=== PATIENT | female | born 1995 | race Two or more races ===

== ENCOUNTER 2016-12-29 23:49 | Emergency (ER) | payer SELFPAY ==
[2016-12-30] MEDS ORDERED: TRAMADOL HCL 50 MG TABLET PO ONE (04:01)
--- NOTE | 2016-12-30 04:01 | ER Document Report ---
HPI - HPI Patient complains to provider of: ankle pain Onset: Other Onset/Duration: Persistent - 3 weeks Quality of pain: Achy Pain Level: 4 Context: Patient complains of left ankle pain for the past 3 weeks. Patient states she was walking and felt a pop in her ankle. Patient denies any known injury. Associated Symptoms: Other - Left ankle pain Exacerbated by: Standing, Movement, Walking Relieved by: Denies Similar symptoms previously: No Recently seen / treated by doctor: No - ROS ROS below otherwise negative: Yes Systems Reviewed and Negative: Yes All other systems reviewed and negative - NEURO Neurology: DENIES: Weakness - REPRODUCTIVE LMP: 12-24-16 - MUSCULOSKELETAL Musculoskeletal: REPORTS: Extremity pain - Left ankle - DERM Skin Color: Normal Skin Problems: None Past Medical History - General Information source: Patient - Social History Smoking Status: Never Smoker Frequency of alcohol use: Occasional Drug Abuse: None Occupation: food science technician Family History: None, Reviewed & Not Pertinent Patient has suicidal ideation: No Patient has homicidal ideation: No Neurological Medical History: Reports: Hx Migraine Renal/ Medical History: Denies: Hx Peritoneal Dialysis Past Surgical History: Reports: Hx Appendectomy, Hx Oral Surgery Vertical Provider Document - CONSTITUTIONAL Agree With Documented VS: Yes Exam Limitations: No Limitations General Appearance: WD/WN, No Apparent Distress - INFECTION CONTROL TRAVEL OUTSIDE OF THE [place] IN LAST 30 DAYS: No - HEENT HEENT: Atraumatic, Normocephalic - NECK Neck: Normal Inspection - RESPIRATORY Respiratory: No Respiratory Distress O2 Sat by Pulse Oximetry: 99 - CARDIOVASCULAR Pulses: Normal: Dorsalis pedis - MUSCULOSKELETAL/EXTREMETIES Musculoskeletal/Extremeties: MAEW, Tender - Left ankle tenderness to bilateral malleolar area, no deformity, no edema, No Edema. negative: Eccymosis - NEURO Level of Consciousness: Awake, Alert, Appropriate Motor/Sensory: No Motor Deficit, No Sensory Deficit - DERM Integumentary: Warm, Dry, No Rash Course - Vital Signs Vital signs: Temp Pulse Resp BP Pulse Ox 97.8 F 80 18 140/72 H 99 12/30/16 02:09 12/30/16 02:09 12/30/16 02:09 12/30/16 02:09 12/30/16 02:09 - Diagnostic Test Radiology reviewed: Image reviewed, Reports reviewed Procedures - Immobilization Left Ankle Pre-Proc Neuro Vasc Exam: Normal Immobilizer type: Ankle stirrup Performed by: PCT Post-Proc Neuro Vasc Exam: Normal Alignment checked and good: Yes Discharge - Discharge Clinical Impression: Tendonitis, Elevated blood pressure reading Ankle pain, left Qualifiers: Chronicity: acute Qualified Code(s): M25.572 - Pain in left ankle and joints of left foot Condition: Stable Disposition: HOME, SELF-CARE Instructions: Use of Crutches ([facility]), Ankle Stirrup Splint ([facility]), Ice & Elevation ([facility]), Tendonitis ([facility]), Ultram ([facility]), Anti-Inflammatory Medication ( [facility]) Additional Instructions: Return immediately for any new or worsening symptoms Followup with your primary care provider, call tomorrow to make a followup appointment Follow up with orthopedic DrAmilcar for further evaluation, call Sunday for an appointment Your blood pressure was elevated today, recheck in 1-2 days with a primary doctor. Weightbearing as tolerated Wear stirrup splint for the next 4 days and then remove. If still having pain, follow-up with orthopedic DrAmilcar for further evaluation Prescriptions: Naproxen [Naprosyn 250 Nmg Tablet] 1 tab PO BID #14 tablet Tramadol HCl [Ultram 50 mg Tablet] 50 mg PO ASDIR PRN #12 tablet PRN Reason: Forms: Elevated Blood Pressure, Return to Work Referrals: [facility] [Provider Group] - Follow up as needed [facility] [Provider Group] - 01/01/17
[2016-12-30 06:27] VITALS: BP 132/83
== END 2016-12-30 06:38 | disposition home or self-care (01) ==
LOC: ER 23:49
DX: M77.9 Enthesopathy, unspecified (principal); R03.0 Elevated blood-pressure reading, without diagnosis of hypertension; M25.572 Pain in left ankle and joints of left foot
CPT/HCPCS: 99283; 73610; L4350

== ENCOUNTER 2018-10-11 03:22 | Emergency (ER) | payer SELFPAY ==
[2018-10-11] MEDS ORDERED: LIDOCAINE 2% VISCOUS SOLN 20 ML UDCUP PO ONE (04:05)
[2018-10-11] MEDS ORDERED: MAG HYDROX/AL HYDROX/SIMETH SUSP 30 ML UDCUP PO ONE (04:05)
[2018-10-11] MEDS ORDERED: METOCLOPRAMIDE HCL ORAL SOLN 10 MG/10 ML UDCUP PO ONE (04:05)
--- NOTE | 2018-10-11 04:11 | ER Document Report ---
ED General - General Chief Complaint: Abdominal Pain Stated Complaint: HEADACHE Time Seen by Provider: 10/11/18 03:54 Primary Care Provider: TRINA VICENTE MD [ACTIVE STAFF] - Follow up as needed JELANI HIDALGO MD [ACTIVE STAFF] - Follow up as needed DERRICK ESPARZA MD [ACTIVE STAFF] - Follow up as needed Mode of Arrival: Ambulatory Information source: Patient Notes: 22-year-old female presents emergency department multiple complaints. Patient states that for the last 5 months she has been having left breast pain. She denies any trauma or injury. She denies feeling any lumps. Patient states that the entire left breast just aches. She denies any nipple discharge. No rashes. Patient denies any alleviating or exacerbating factors. Patient states that s he is also having a headache located at her temples for the last 4 months. Patient states that it is constantly there. She states that occasionally it will dull down. She states that she is tried [id number] Tylenol and Motrin with minimal relief of symptoms. Patient denies any vision changes, speech changes, numbness, tingling, weakness, fever, chills. Patient denies any head injury. Patient states that she is also had a lump in the epigastric abdominal region that she noticed a month ago. She states that she is having some associated epigastric abdominal pain. It is intermittent in nature. She denies any nausea, vomiting, diarrhea, constipation, dysuria, hematuria, vaginal discharge. Patient states that she is currently on her menstrual cycle. Patient denies any medical problems. TRAVEL OUTSIDE OF THE [place] IN LAST 30 DAYS: No - HPI Onset/Duration: Persistent Associated symptoms: Headache Exacerbated by: Denies Relieved by: Denies Similar symptoms previously: Yes Recently seen / treated by doctor: No - Related Data Allergies/Adverse Reactions: No Known Allergies Allergy (Verified 05/02/16 17:09) Past Medical History - General Information source: Patient - Social History Smoking Status: Never Smoker Chew tobacco use (# tins/day): No Frequency of alcohol use: None Drug Abuse: None Family History: None, Reviewed & Not Pertinent Patient has suicidal ideation: No Patient has homicidal ideation: No Pulmonary Medical History: Reports: Hx Asthma Neurological Medical History: Reports: Hx Migraine Renal/ Medical History: Denies: Hx Peritoneal Dialysis Past Surgical History: Reports: Hx Appendectomy, Hx Oral Surgery Review of Systems - Review of Systems Constitutional: No symptoms reported EENT: Nose discharge Cardiovascular: No symptoms reported Respiratory: No symptoms reported Gastrointestinal: Abdominal pain Genitourinary: No symptoms reported Female Genitourinary: No symptoms reported Musculoskeletal: No symptoms reported Skin: No symptoms reported Hematologic/Lymphatic: No symptoms reported Neurological/Psychological: No symptoms reported -: Yes All other systems reviewed and negative Physical Exam - Vital signs Vitals: Temp Pulse Resp BP Pulse Ox 98.1 F 88 17 126/72 H 99 10/11/18 03:33 10/11/18 03:33 10/11/18 03:33 10/11/18 03:33 10/11/18 03:33 - Notes Notes: PHYSICAL EXAMINATION: GENERAL: Well-appearing, well-nourished and in no acute distress. HEAD: Atraumatic, normocephalic. EYES: Pupils equal round and reactive to light, extraocular movements intact, conjunctiva are normal. ENT: Nares patent, oropharynx clear without exudates. Moist mucous membranes. NECK: Normal range of motion, supple without lymphadenopathy LUNGS: Breath sounds clear to auscultation bilaterally and equal. No wheezes rales or rhonchi. HEART: Regular rate and rhythm without murmurs. L breast diffuse tenderness to palpation. No nipple discharge. No rash. No lumps appreciated. ABDOMEN: Soft, tenderness to palpation in the epigastric area. Nondistended. No guarding, no rebound. No masses appreciated. Female : deferred Musculoskeletal: Normal range of motion, no pitting or edema. No cyanosis. NEUROLOGICAL: Cranial nerves grossly intact. Normal speech, normal gait. Normal sensory, motor exams PSYCH: Normal mood, normal affect. SKIN: Warm, Dry, normal turgor, no rashes or lesions noted. Course - Re-evaluation Re-evalutation: 10/11/18 05:44 Labs and imaging obtained. No acute process was identified. I will refer the patient to her primary care physician, GI, as well as an CRM TECHNICAL LEAD. I instructed the patient to take [id number] medication as necessary for discomfort, to follow-up with the physicians outpatient for further evaluation and testing, and to return to the emergency department for any worsening symptoms. - Vital Signs Vital signs: Temp Pulse Resp BP Pulse Ox 98.0 F 80 17 108/66 98 10/11/18 05:59 10/11/18 05:59 10/11/18 05:59 10/11/18 05:59 10/11/18 05:59 - Laboratory Result Diagrams: 10/11/18 04:28 10/11/18 04:28 Laboratory results interpreted by me: 10/11/18 10/11/18 04:28 04:28 Lymphocytes % 12.6 L Monocytes % 14.2 H Urine Urobilinogen 4.0 H Urine Ascorbic Acid 40 H Discharge - Discharge Clinical Impression: Breast pain, left, Epigastric abdominal pain Headache Qualifiers: Headache type: unspecified Headache chronicity pattern: chronic headache Intractability: intractable Qualified Code(s): R51 - Headache Condition: Good Disposition: HOME, SELF-CARE Instructions: Breast Discharge ([facility]), Breast Lumps ([facility]), Evaluation of Upper A bdominal Pain ([facility]) Forms: Return to Work Referrals: JELANI HIDALGO MD [ACTIVE STAFF] - Follow up as needed DERRICK ESPARZA MD [ACTIVE STAFF] - Follow up as needed TRINA VICENTE MD [ACTIVE STAFF] - Follow up as needed
[2018-10-11 04:47] LABS: ABSOLUTE EOSINOPHILS # (AUTO) 0.1 10^3/uL (0.0-0.6); ABSOLUTE LYMPHOCYTES (AUTO) 1.1 10^3/uL (0.5-4.7); ABSOLUTE MONOCYTES (AUTO) 1.3 10^3/uL (0.1-1.4); ABSOLUTE NEUT (AUTO) 6.3 10^3/uL (1.7-8.2); BASOPHILS % (AUTO) 0.4 % (0-2); EOSINOPHILS % (AUTO) 1.6 % (0-6); HEMATOCRIT 39.3 % (36.0-47.0); HEMOGLOBIN 13.1 g/dL (12.0-15.5); LYMPHOCYTES % (AUTO) 12.6 % (13-45); MEAN CORPUSCULAR HEMOGLOBIN 30.5 pg (27.0-33.4); MEAN CORPUSCULAR HGB CONC 33.4 g/dL (32.0-36.0); MEAN CORPUSCULAR VOLUME 92 fl (80-97); MONOCYTES % (AUTO) 14.2 % (3-13); PLATELET COUNT 229 10^3/uL (150-450); RED CELL DISTRIBUTION WIDTH 13.5 % (11.5-14.0); SEGMENTED NEUTROPHILS % (AUTO) 71.2 % (42-78); TOTAL CELLS COUNTED % (AUTO) 100 %; WHITE BLOOD COUNT 8.9 10^3/uL (4.0-10.5)
[2018-10-11 05:07] LABS: APPEARANCE,URINE SLIGHTLY-CLOUDY; BILIRUBIN,URINE NEGATIVE (NEGATIVE); COLOR,URINE YELLOW; GLUCOSE, URINE NEGATIVE (NEGATIVE); KETONES,URINE NEGATIVE (NEGATIVE); LEUKOCYTE ESTERASE,URINE NEGATIVE (NEGATIVE); NITRITE,URINE NEGATIVE (NEGATIVE); PROTEIN,URINE NEGATIVE (NEGATIVE); URINE SPECIFIC GRAVITY 1.025
[2018-10-11 05:11] LABS: ALANINE AMINOTRANSFERASE 13 U/L (9-52); ALBUMIN 4.5 g/dL (3.5-5.0); ALKALINE PHOSPHATASE 70 U/L (38-126); ANION GAP 10 (5-19); ASPARTATE AMINO TRANSFERASE 22 U/L (14-36); BILIRUBIN,DIRECT 0.2 mg/dL (0.0-0.4); BILIRUBIN,TOTAL 0.3 mg/dL (0.2-1.3); BLOOD UREA NITROGEN 10 mg/dL (7-20); CALCIUM 9.5 mg/dL (8.4-10.2); CARBON DIOXIDE 26 mmol/L (22-30); CHLORIDE 107 mmol/L (98-107); GLUCOSE 96 mg/dL (75-110); LIPASE 48.1 U/L (23-300); POTASSIUM 4.6 mmol/L (3.6-5.0); TOTAL PROTEIN 6.8 g/dL (6.3-8.2)
[2018-10-11] MEDS ORDERED: KETOROLAC TROMETHAMINE 60 MG/2 ML SDV IM ONE (05:42)
[2018-10-11] MEDS ORDERED: IBUPROFEN 600 MG TABLET PO ONE (05:50)
--- NOTE | 2018-10-11 05:58 | RADIOLOGY REPORT (SQ) ---
EXAM DESCRIPTION: XR ABDOMEN SUPINE AND ERECT WITH CHEST (ABD ACUTE SERIES) COMPLETED DATE/TME: 10/11/2018 04:12 CLINICAL HISTORY: 22 years Female, epigastric abdominal pain Comparison: None. NUMBER OF VIEWS/TECHNIQUE: 3 LIMITATIONS: None. FINDINGS: Intestinal gas pattern is within normal limits. Increased lung volume. No suspicious calcification. Grossly intact skeletal structures. No acute cardiopulmonary findings. IMPRESSION: No acute findings.
[2018-10-11 06:01] VITALS: BP 108/66
== END 2018-10-11 06:01 | disposition home or self-care (01) ==
LOC: ER 03:22
DX: N64.4 Mastodynia (principal); R10.13 Epigastric pain; R10.9 Unspecified abdominal pain; R51 Headache; J45.909 Unspecified asthma, uncomplicated
CPT/HCPCS: 99284; 36415; 83690; 85025; 81025; 80053; 81001; 74022; J3490

== ENCOUNTER 2019-01-24 20:32 | Emergency (ER) | payer SELFPAY ==
[2019-01-24 20:40] VITALS: BP 133/80
--- NOTE | 2019-01-24 21:14 | ER Document Report ---
ED General - General Chief Complaint: Wrist Pain Stated Complaint: WRIST INJURY/BLOOD SUGAR CHECK Time Seen by Provider: 01/24/19 20:59 Mode of Arrival: Ambulatory Information source: Patient TRAVEL OUTSIDE OF THE [place] IN LAST 30 DAYS: No - HPI Patient complains to provider of: Left wrist pain, polydipsia Onset: Other - Chronic Onset/Duration: Constant Quality of pain: Sharp Severity: Severe Pain Level: 4 Associated symptoms: None Exacerbated by: Movement Relieved by: Denies Similar symptoms previously: No Recently seen / treated by doctor: No Notes: 23-year-old female coming in today for left wrist pain. Has some tingling in her fingers and pain in her left wrist. Today at work she felt a popping sensation. Also drinks a lot of water. Has a lot of thirst. Concerned about developing diabetes. - Related Data Allergies/Adverse Reactions: No Known Allergies Allergy (Verified 05/02/16 17:09) Past Medical History - General Information source: Patient - Social History Smoking Status: Smoker,Current Status Unk Family History: None, Reviewed & Not Pertinent Pulmonary Medical History: Reports: Hx Asthma Neurological Medical History: Reports: Hx Migraine Renal/ Medical History: Denies: Hx Peritoneal Dialysis Past Surgical History: Reports: Hx Appendectomy, Hx Oral Surgery Review of Systems - Review of Systems Notes: Constitutional: No fevers. No chills. Positive for polydipsia EENT: No eye redness. No eye pain. No ear pain. No sore throat. Cardiovascular: No chest pain. No palpitations. Respiratory: No cough. No shortness of breath. No respiratory distress. Gastrointestinal: No abdominal pain. No nausea, vomiting, or diarrhea. Genitourinary: Atraumatic. No lesions. No pain. No discharge. Musculoskeletal: Positive for left wrist pain, left wrist popping Skin: No rash or lesions. Lymphatic: No swollen lymph nodes. Neurologic: No headache. No syncope. Psychiatric: No suicidal or homicidal ideation. Physical Exam - Vital signs Vitals: Temp Pulse Resp BP Pulse Ox 98.4 F 73 15 133/80 H 98 01/24/19 20:38 01/24/19 20:38 01/24/19 20:38 01/24/19 20:38 01/24/19 20:38 - Notes Notes: General: Well-developed, well-nourished. In no acute distress. Non-toxic appearing. Cardiac: Well-perfused. Regular rate and rhythm. No murmurs, rubs, or gallops. Pulmonary: No respiratory distress. No cyanosis. Bilateral lung fiels are clear to auscultation. Abdominal: Non-distended. Non-rigid. Bowels sounds are present in all four quadrants. No guarding or rebound. HEENT: Head is atraumatic. Conjunctivae not reddened. No tearing. PERRL. EOMI. Orbits atraumatic. No periorbital swelling or erythema. Oropharynx is without erythema, swelling, or exudates. Neck: Supple. No adenopathy. No meningismus. Dermatologic: Warm with good turgor. No rash. Atraumatic. Chest: Atraumatic. No chest wall tenderness to palpation. Musculoskeletal: Moves all extremities well. No range of motion deficits. no muscular or joint tenderness. No paraspinal muscle tenderness. no midline spinal tenderness or step-off. Genitourinary: Examination deferred Neurologic: No gross neurologic deficits. Psychiatric: Normal mood. Course - Re-evaluation Re-evalutation: 01/24/19 21:13 We will get a wrist film. Likely it will be normal. Will probably end up splinting the left wrist. Accu-Chek will be ordered to see if there is any concern about the patient's blood sugar. - Vital Signs Vital signs: Temp Pulse Resp BP Pulse Ox 98.4 F 73 15 133/80 H 98 01/24/19 20:38 01/24/19 20:38 01/24/19 20:38 01/24/19 20:38 01/24/19 20:38 - Laboratory Laboratory results interpreted by me: 01/24/19 21:16 POC Glucose 137 H Discharge - Discharge Clinical Impression: Tendinitis, Hyperglycemia Condition: Good Disposition: HOME, SELF-CARE Instructions: Tendonitis ([facility]), Hyperglycemia ([facility]) Additional Instructions: Wear the wrist splint as needed for comfort of the left wrist until its better. Blood sugar was a little elevated here. Suggest that she follow back up with the clinic to have further testing done. Elevated blood sugar here could very well be secondary to drinking a sugary beverage before you came in. Prescriptions: Naproxen 500 mg PO BID 7 Days #14 tablet Referrals: [facility] [Provider Group] - Follow up as needed
--- NOTE | 2019-01-24 22:03 | RADIOLOGY REPORT (SQ) ---
EXAM DESCRIPTION: XR WRIST 3 OR MORE VIEWS COMPLETED DATE/TME: 01/24/2019 21:10 CLINICAL HISTORY: 23 years, Female, Pain and popping in left wrist COMPARISON: None. NUMBER OF VIEWS: 3 TECHNIQUE: 3 view left wrist LIMITATIONS: None. FINDINGS: Negative for acute fracture or dislocation. Soft tissues are unremarkable. Joint spaces are preserved IMPRESSION: Negative exam copyright 2010 [employer]- All Rights Reserved
== END 2019-01-24 22:25 | disposition home or self-care (01) ==
LOC: ER 20:32
DX: M77.9 Enthesopathy, unspecified (principal); R73.9 Hyperglycemia, unspecified; M25.532 Pain in left wrist; R63.1 Polydipsia; F17.200 Nicotine dependence, unspecified, uncomplicated
CPT/HCPCS: 99283; 82962; 73110; L3908

== ENCOUNTER 2019-05-05 16:29 | Emergency (ER) | payer SELFPAY ==
--- NOTE | 2019-05-05 17:02 | ER Document Report ---
HPI - HPI Patient complains to provider of: nausea, fever Time Seen by Provider: 05/05/19 16:50 Onset: Last week Onset/Duration: Persistent Quality of pain: No pain Pain Level: Denies Context: This 23-year-old female presents to the emergency department with complaints of nausea and fever on and off for the past week. She reports she is feeling the same way she felt when she was with her daughter. She has taken multiple home test and they have all been negative. She reports the only way they discovered she was before was with a blood test. Patient denies vomiting diarrhea. Reports she is eating and drinking okay she just is nauseated all day long. Patient denies pain with void denies urinary symptoms. Denies vaginal discharge. Patient is sexually active no control. Patient reports some lower abdominal pain that comes and goes with no pain at this time. Associated Symptoms: None Exacerbated by: Denies Relieved by: Denies Similar symptoms previously: Yes Recently seen / treated by doctor: No - REPRODUCTIVE LMP: 04/15/2019 Reproductive: DENIES: : Past Medical History - General Information source: Patient Last Menstrual Period: 04/15/19 - Social History Smoking Status: Current Some Day Smoker Cigarette use (# per day): Yes Frequency of alcohol use: None Drug Abuse: None Lives with: Family Family History: None, Reviewed & Not Pertinent Patient has suicidal ideation: No Patient has homicidal ideation: No Pulmonary Medical History: Reports: Hx Asthma Neurological Medical History: Reports: Hx Migraine Renal/ Medical History: Denies: Hx Peritoneal Dialysis Past Surgical History: Reports: Hx Appendectomy, Hx Oral Surgery Vertical Provider Document - CONSTITUTIONAL Agree With Documented VS: Yes Exam Limitations: No Limitations General Appearance: WD/WN, No Apparent Distress - INFECTION CONTROL TRAVEL OUTSIDE OF THE [place] IN LAST 30 DAYS: No - HEENT HEENT: Atraumatic, Normocephalic - NECK Neck: Normal Inspection, Supple. negative: Lymphadenopathy-Left, Lymphadenopathy-Right - RESPIRATORY Respiratory: Breath Sounds Normal, No Respiratory Distress - CARDIOVASCULAR Cardiovascular: Regular Rate - GI/ABDOMEN Gastrointestinal: Abdomen Soft, Abdomen Non-Tender - BACK Back: Normal Inspection. negative: CVA Tenderness-Right, CVA Tenderness-Left - MUSCULOSKELETAL/EXTREMETIES Musculoskeletal/Extremeties: DIMPLE NUÑEZ - NEURO Level of Consciousness: Awake, Alert, Appropriate Motor/Sensory: No Motor Deficit - DERM Integumentary: Warm, Dry Course - Re-evaluation Re-evalutation: 05/05/19 18:40 23-year-old female presents emergency department with reports she is had fever and felt nauseated for the past week. She reports this is the same symptoms she had when she was with her daughter. She is worried she is . Reports she is taking negative multiple home test and they have all been negative. She would like a blood test. UA negative serum test negative. Patient denies any other symptoms such as fever vomiting diarrhea reports abdominal pain that comes and goes every now and then but no abdominal pain at this time. Denies all urinary symptoms. Denies vaginal discharge. Patient was instructed on results instructed to follow-up with her primary care provider continued symptoms. Dictation of this chart was performed using voice recognition software; therefore, there may be some unintended grammatical errors. 05/05/19 18:42 Serum HCG, Qual NEGATIVE (NEGATIVE) 05/05/19 17:07 Urine Color YELLOW 05/05/19 17:07 Urine Appearance CLEAR 05/05/19 17:07 Urine pH 6.0 (5.0-9.0) 05/05/19 17:07 Ur Specific Villalba 1.012 05/05/19 17:07 Urine Protein NEGATIVE mg/dL (NEGATIVE) 05/05/19 17:07 Urine Glucose (UA) NEGATIVE mg/dL (NEGATIVE) 05/05/19 17:07 Urine Ketones NEGATIVE mg/dL (NEGATIVE) 05/05/19 17:07 Urine Blood NEGATIVE (NEGATIVE) 05/05/19 17:07 Urine Nitrite NEGATIVE (NEGATIVE) 05/05/19 17:07 Ur Leukocyte Esterase NEGATIVE (NEGATIVE) 05/05/19 17:07 Urine WBC (Auto) 0 /HPF 05/05/19 17:07 Urine RBC (Auto) 1 /HPF 05/05/19 17:07 - Vital Signs Vital signs: Temp Pulse Resp BP Pulse Ox 98.7 F 90 16 128/66 H 96 05/05/19 16:33 05/05/19 16:33 05/05/19 16:33 05/05/19 16:33 05/05/19 16:33 Discharge - Discharge Clinical Impression: Nausea Fever Qualifiers: Fever type: unspecified Qualified Code(s): R50.9 - Fever, unspecified Condition: Stable Disposition: HOME, SELF-CARE Instructions: Fever ([facility]), Nausea or Vomiting, Nonspecific ([facility]) Additional Instructions: *You have been evaluated for nausea and fever *The serum test was negative *Follow-up with your primary care provider within 1 week for recheck *Return to ED for worsening condition, changes, needs Monitor your blood pressure. Your blood pressure was elevated today. This may be because you were anxious, in pain or because you need medication. It is important to follow up with your primary care provider for full evaluation. Forms: Elevated Blood Pressure
[2019-05-05 17:44] LABS: APPEARANCE,URINE CLEAR; BILIRUBIN,URINE NEGATIVE (NEGATIVE); COLOR,URINE YELLOW; GLUCOSE, URINE NEGATIVE (NEGATIVE); KETONES,URINE NEGATIVE (NEGATIVE); LEUKOCYTE ESTERASE,URINE NEGATIVE (NEGATIVE); NITRITE,URINE NEGATIVE (NEGATIVE); PROTEIN,URINE NEGATIVE (NEGATIVE); URINE SPECIFIC GRAVITY 1.012; UROBILINOGEN,URINE NEGATIVE mg/dL (<2.0)
[2019-05-05 19:26] VITALS: BP 126/96
== END 2019-05-05 19:26 | disposition home or self-care (01) ==
LOC: ER 16:29
DX: R11.0 Nausea (principal); R50.9 Fever, unspecified; F17.210 Nicotine dependence, cigarettes, uncomplicated; J45.909 Unspecified asthma, uncomplicated
CPT/HCPCS: 36415; 81001; 84702; 84703; 99283